=== PATIENT | female | born 1945 | race Caucasian/White ===

== ENCOUNTER 2017-08-02 12:50 | Inpatient (IN) ==
[2017-08-02] MEDS ORDERED: ONDANSETRON 4 MG/2 ML VIAL IV PRN ×2 (13:20→15:51)
[2017-08-02] MEDS ORDERED: NITROGLYCERIN 2% OINT 1 INCH/GM PACK TOP STA (13:20)
[2017-08-02] MEDS ORDERED: MORPHINE 2 MG/1 ML SYRINGE IV PRN ×2 (13:20→15:51)
[2017-08-02] MEDS ORDERED: ENOXAPARIN 100 MG/ML SYRINGE SUBCUT STA (13:20)
[2017-08-02] MEDS ORDERED: ASPIRIN 325 MG TABLET PO STA (13:20)
[2017-08-02] MEDS ORDERED: NITROGLYCERIN 2% OINT 1 INCH/GM PACK TOP ONE (13:32)
[2017-08-02] MEDS ORDERED: ENOXAPARIN 100 MG/ML SYRINGE SUBCUT ONE (13:32)
[2017-08-02] MEDS ORDERED: ASPIRIN 325 MG TABLET ONE (13:33)
[2017-08-02 13:53] LABS: Basophils # 0.1 10*3/uL (0.0-0.2); Basophils % 0.9 % (0.0-0.8); Eosinophils # 0.2 10*3/uL (0.0-0.87); Eosinophils % 2.7 % (0.00-10.9); Hematocrit 40.4 VOL% (35.7-47.0); Hemoglobin 14.5 GM/DL (12.0-16.0); Immature Granulocytes % 0.2 %; Immature Granulocytes Absolute 0.02 #; Lymphocytes # 3.5 10*3/uL (1.4-4.0); Lymphocytes % 42.8 % (21.3-54.2); Mean Corpuscular HGB Conc 35.9 GM/DL (32-36); Mean Corpuscular Hemoglobin 32 PG (27-34); Mean Corpuscular Volume 89.2 FL (87-102); Monocytes # 0.6 10*3/uL (0.11-0.8); Monocytes % 7.9 % (1.7-12.7); Neutrophils # 3.7 10*3/uL (1.4-7.4); Neutrophils % 45.5 % (38.7-73.9); Platelet Count 357 T/CUMM (130-400); Red Blood Count 4.53 MC/CUMM (3.8-5.5); White Blood Count 8.1 T/CUMM (4-12)
[2017-08-02 14:03] LABS: Albumin 4.4 G/DL (3.4-5.0); Bilirubin,Total 0.4 MG/DL (0.2-1.0); Calcium 9.6 MG/DL (8.5-10.1); Osmolality,Calculated 281.1 MOS/KG (273-304); Potassium 4.3 MMOL/L (3.5-5.1)
[2017-08-02 14:17] LABS: PT Patient Result 10.4 SECS; Partial Thromboplastin Time 24.8 SECS (0-40)
[2017-08-02] MEDS ORDERED: ACETAMINOPHEN 325 MG TABLET PO PRN (15:51)
[2017-08-02] MEDS ORDERED: PRAVASTATIN 40 MG TABLET PO SCH (21:00)
[2017-08-03 05:03] LABS: Basophils # 0.1 10*3/uL (0.0-0.2); Basophils % 1.2 % (0.0-0.8); Eosinophils # 0.3 10*3/uL (0.0-0.87); Eosinophils % 4.1 % (0.00-10.9); Hematocrit 37.3 VOL% (35.7-47.0); Hemoglobin 12.6 GM/DL (12.0-16.0); Immature Granulocytes % 0.2 %; Immature Granulocytes Absolute 0.01 #; Lymphocytes # 3.4 10*3/uL (1.4-4.0); Lymphocytes % 51.9 % (21.3-54.2); Mean Corpuscular HGB Conc 33.8 GM/DL (32-36); Mean Corpuscular Hemoglobin 31 PG (27-34); Mean Corpuscular Volume 91.9 FL (87-102); Monocytes # 0.6 10*3/uL (0.11-0.8); Monocytes % 8.4 % (1.7-12.7); Neutrophils # 2.3 10*3/uL (1.4-7.4); Neutrophils % 34.2 % (38.7-73.9); Platelet Count 321 T/CUMM (130-400); Red Blood Count 4.06 MC/CUMM (3.8-5.5); White Blood Count 6.6 T/CUMM (4-12)
[2017-08-03 05:30] LABS: Band Neutrophils 1 % (0-10); Eosinophils 4 % (0-10); Lymphocytes 50 % (20-55); Segmented Neutrophils 40 % (50-85); Total Cells Counted 100
[2017-08-03 05:31] LABS: Atypical Lymphocytes Few; Giant Platelets Few; Hypochromasia 1+; Microcytosis Slight; Platelet Estimate Adequate
[2017-08-03 06:04] LABS: Calcium 8.8 MG/DL (8.5-10.1); Osmolality,Calculated 280.4 MOS/KG (273-304); Potassium 4.1 MMOL/L (3.5-5.1); Risk Ratio 4.47; Thyroid Stimulating Hormone 2.6 uIU/ml (0.358-3.74); VLDL CHOLESTEROL 38.6 MG/DL
[2017-08-03] MEDS ORDERED: ASPIRIN CHEW 81 MG TABLET PO SCH (09:00)
[2017-08-03] MEDS ORDERED: ENOXAPARIN 40 MG/0.4 ML SYRINGE SUBCUT SCH (09:00)
[2017-08-03] MEDS ORDERED: PANTOPRAZOLE 40 MG TABLET PO SCH (09:00)
[2017-08-03] MEDS ORDERED: amLODIPine 2.5 MG TABLET PO SCH (09:00)
[2017-08-03 16:01] VITALS: BP 134/63
== END 2017-08-03 18:40 | disposition home or self-care (01) | DRG 313 ==
LOC: N.ED 12:50 → N.EDINP 15:00 → N.4E 16:38